=== PATIENT | female | born 1965 | race African-American/Black ===

== ENCOUNTER 2024-02-27 18:18 | Emergency (ER) | payer OTHER ==
[~2024-02-27] VITALS: Ht 182.9 cm; Wt 109.5 kg
[2024-02-27 18:43] VITALS: BP 142/98; PULSE 98; TEMP 98.7; O2SAT 100
== END 2024-02-27 19:50 | disposition left against medical advice (07) ==
LOC: ER 18:18
DX: M25.571 Pain in right ankle and joints of right foot (principal); Z53.21 Procedure and treatment not carried out due to patient leaving prior to being seen by health care provider
CPT/HCPCS: 73610; 99283